=== PATIENT | female | born 1985 | race Caucasian/White ===

== ENCOUNTER → 2017-01-11 | Outpatient (CLI) | payer BC | LOC: CLAB 15:44 | PROVIDERS: ATTEND Obstetrics & Gynecology | DX: Z67.21 Type B blood, Rh negative (principal) | CPT/HCPCS: 36415; 86900; 86901; 90384; J2790 ==

== ENCOUNTER → 2017-01-12 | Outpatient (CLI) | payer BC | LOC: HPND 07:36 | PROVIDERS: ATTEND Obstetrics & Gynecology | DX: O36.0990 Maternal care for other rhesus isoimmunization, unspecified trimester, not applicable or unspecified (principal); Z67.21 Type B blood, Rh negative | CPT/HCPCS: 96372 ==

== ENCOUNTER 2017-08-23 02:31 | Inpatient (IN) | payer BC ==
[2017-08-23] VITALS (12 sets, daily range): BP systolic 112–135; BP diastolic 67–92; PULSE 66–91; RESP 16–18; TEMP 98.3–98.5
[~2017-08-23] VITALS: Ht 175.3 cm; Wt 93.0 kg
[2017-08-23] MEDS ORDERED: OXYTOCIN 30 UNITS-500ML PREMIX 500 ML ONE (02:53)
[2017-08-23] MEDS ORDERED: LIDOCAINE HCL 1% 50 ML VIAL ONE (02:54)
[2017-08-23 02:59] LABS: AUTOMATED NEUTROPHIL # 5.3 TH/MM3 (1.8-7.7); BASOPHIL # 0.1 TH/MM3 (0-0.2); BASOPHIL % 0.7 % (0.0-2.0); EOSINOPHIL # 0.1 TH/MM3 (0-0.4); EOSINOPHIL % 0.8 % (0.0-4.0); HEMATOCRIT 38.3 % (35.0-46.0); HEMO FLAGS DIFF FINAL; LYMPH % 37.7 % (9.0-44.0); LYMPHOCYTE # 3.7 TH/MM3 (1.0-4.8); MEAN CELL VOLUME 90.7 FL (80.0-100.0); MEAN CORPUSCULAR HEMOGLOBIN 30.5 PG (27.0-34.0); MEAN CORPUSCULAR HGB CONC 33.6 % (32.0-36.0); MONO % 7.4 % (0.0-8.0); NEUT % 53.4 % (16.0-70.0); PLATELET COUNT 217 TH/MM3 (150-450); RED BLOOD COUNT 4.22 MIL/MM3 (4.00-5.30); RED CELL DISTRIBUTION WIDTH 13.3 % (11.6-17.2); WHITE BLOOD COUNT 9.9 TH/MM3 (4.0-11.0)
[2017-08-23] MEDS ORDERED: MINERAL OIL 10 ML VIAL TOPICAL PRN (03:15)
[2017-08-23] MEDS ORDERED: ONDANSETRON ODT 4 MG TAB PO PRN (03:15)
[2017-08-23] MEDS ORDERED: LIDOCAINE HCL 1% 50 ML VIAL I-DERMAL PRN (03:15)
[2017-08-23] MEDS ORDERED: NS 1000 ML IV PRN (03:15)
[2017-08-23] MEDS ORDERED: ALUMINUM/MAGNESIUM/SIMETH 30 ML CUP PO PRN (03:15)
[2017-08-23] MEDS ORDERED: ZOLPIDEM TARTRATE 5 MG TAB PO PRN (03:15)
[2017-08-23] MEDS ORDERED: WITCH HAZEL 50%/GLYCERIN 12.5% 40 PAD JAR TOPICAL PRN (03:15)
[2017-08-23] MEDS ORDERED: OXYTOCIN 30 UNITS 500ML PREMIX IV ONE (03:15)
[2017-08-23] MEDS ORDERED: CITRIC ACID-SODIUM CITRATE LIQ 30 ML UDC PO SCH (03:15)
[2017-08-23] MEDS ORDERED: BENZOCAINE 20% TOPICAL SPRAY 60 ML CAN TOPICAL PRN (03:15)
[2017-08-23] MEDS ORDERED: DOCUSATE SODIUM 50 MG/SENNA 8.6 MG TAB PO PRN (03:15)
[2017-08-23] MEDS ORDERED: SODIUM CHLORIDE 0.9% FLUSH 10 ML FLUSH IV FLUSH PRN (03:15)
[2017-08-23] MEDS ORDERED: LACTATED RINGER'S 1000 ML BOLUS IV PRN (03:15)
[2017-08-23] MEDS ORDERED: OXYTOCIN 30 UNITS-500ML PREMIX 500 ML IV SCH (03:15)
[2017-08-23] MEDS ORDERED: ONDANSETRON HCL 4 MG/2 ML VIAL IV PUSH PRN (03:15)
[2017-08-23] MEDS ORDERED: LIDOCAINE HCL 1% 50 ML VIAL INFIL PRN (03:15)
[2017-08-23] MEDS ORDERED: NS 500 ML BOLUS IV PRN (03:15)
[2017-08-23] MEDS ORDERED: oxyCODONE/ACETAMINOPHEN 5 MG/325 MG TAB PO PRN (03:15)
--- NOTE | 2017-08-23 03:16 | PD.OB.DELI ---
Weeks gestation: 38 Gest age assessed date: Aug 23, 2017 Gest age assessed time: 03:10 Pt started active labor?: Yes Active labor start date: Aug 23, 2017 Active labor start time: 01:30 Medical induction of labor?: No Artificial rupture of membrane: No Anesthesia: None Episiotomy: None Vaginal Delivery: Precipitous Presentation: Occiput anterior Nuchal Cord: x1 Delayed cord clamping (45 sec): Yes : Male Delivery date: Aug 23, 2017 Delivery time: 02:57 One Minute : 8 Five Minute : 9 Placenta: Spontaneous delivery, Intact, 3 vessel cord Laceration: No lacerations Estimated blood loss: 150cc Dick Garay MD Aug 23, 2017 03:16
[2017-08-23] MEDS: LACTATED RINGER'S 1000 ML IV SCH ×2 (03:26→19:15)
--- NOTE | 2017-08-23 03:28 | HHI.HP ---
HPI Chief Complaint 38 weeks and 4 days. Presents fully dilated Date Seen: Aug 23, 2017 Time Seen: 02:50 Travel History International Travel<30 Days: No Contact w/Intl Traveler<30Days: No Known Affected Area: No History of Present Illness HPI Pt is a 32 yo who presents on L&D at 38 weeks and 4 days, with uterine contractions. Pt states she had mild contractions earlier in the night, but woke up at 01:30 with strong contractions. She noted fluid leak at the same time. care wih Dr Tony with [facility] 09-01-2017. complicated by gestational diabetes, well-controlled with PO Glybride. Pt also had well-controlled hypothyroidism on Synthroid 88mcg daily. Weeks Gestation: 38 Para: 2 : 3 History Past Medical History Narrative Medical Hypothyroidism Obstetric History Obstetric History 2 prior term vaginal deliveries. Past Surgical History Surgical History: No Previous Surgery Family History Family History: Negative Social History Alcohol Use: No Tobacco Use: No Substance Abuse: No Review of Systems Except as stated in HPI: all other systems reviewed are Neg Physical Exam Narrative GENERAL: Well-nourished, well-developed patient. SKIN: Warm and dry. HEAD: Normocephalic and atraumatic. EYES: No scleral icterus. No injection or drainage. ENT: No nasal drainage noted. Mucous membranes pink. Airway patent. NECK: Supple, trachea midline. No JVD. CARDIOVASCULAR: Regular rate and rhythm without murmurs, gallops, or rubs. RESPIRATORY: Breath sounds equal bilaterally. No accessory muscle use. BREASTS: Bilateral exam showed no masses , no retractions, no nipple discharge. ABDOMEN/GI: Abdomen soft, non-tender, bowel sounds present, no rebound, no guarding Gravid to [38] weeks size GENITOURINARY: External Genitalia: intact and normal in appearance Cervix: [-] Dilatation: [full] Effacement: [-] Station: [+2] Presentation: [-] Membranes: [Ruptured] Uterine Contractions: [every 1-2 minutes] FHT's: Category: [2] Baseline: [140s] Reactive: [-] Variability: [moderate] Decels: [early] EXTREMITIES: No cyanosis or edema. BACK: Nontender without obvious deformity. No CVA tenderness. NEUROLOGICAL: Awake and alert. Motor and sensory grossly within normal limits. Five out of 5 muscle strength in all muscle groups. Normal speech. Caprini VTE Risk Assessment Caprini VTE Risk Assessment: No/Low Risk (score <= 1) Caprini Risk Assessment Model Point Value = 1 Point Value = 2 Point Value = 3 Point Value = 5 Age 41-60 Minor surgery BMI > 25 kg/m2 Swollen legs Varicose veins or History of unexplained or recurrent spontaneous Oral contraceptives or hormone replacement Sepsis (< 1 month) Serious lung disease, including pneumonia (< 1 month) Abnormal pulmonary function Acute myocardial infarction Congestive heart failure (< 1 month) History of inflammatory bowel disease Medical patient at bed rest Age 61-74 Arthroscopic surgery Major open surgery (> 45 min) Laparoscopic surgery (> 45 min) Malignancy Confined to bed (> 72 hours) Immobilizing plaster cast Central venous access Age >= 75 History of VTE Family history of VTE Factor V Leiden Prothrombin [id number] Lupus anticoagulant Anticardiolipin antibodies Elevated serum homocysteine Heparin-induced thrombocytopenia Other congenital or acquired thrombophilia Stroke (< 1 month) Elective arthroplasty Hip, pelvis, or leg fracture Acute spinal cord injury (< 1 month) Prophylaxis Regimen Total Risk Factor Score Risk Level Prophylaxis Regimen 0-1 Low Early ambulation 2 Moderate Order ONE of the following: *Sequential Compression Device (SCD) *Heparin 5000 units SQ BID 3-4 Higher Order ONE of the following medications: *Heparin 5000 units SQ TID *Enoxaparin/Lovenox 40 mg SQ daily (WT < 150 kg, CrCl > 30 mL/min) *Enoxaparin/Lovenox 30 mg SQ daily (WT < 150 kg, CrCl > 10-29 mL/min) *Enoxaparin/Lovenox 30 mg SQ BID (WT < 150 kg, CrCl > 30 mL/min) AND/OR *Sequential Compression Device (SCD) 5 or more Highest Order ONE of the following medications: *Heparin 5000 units SQ TID (Preferred with Epidurals) *Enoxaparin/Lovenox 40 mg SQ daily (WT < 150 kg, CrCl > 30 mL/min) *Enoxaparin/Lovenox 30 mg SQ daily (WT < 150 kg, CrCl > 10-29 mL/min) *Enoxaparin/Lovenox 30 mg SQ BID (WT < 150 kg, CrCl > 30 mL/min) AND *Sequential Compression Device (SCD) Data Data Vital Signs Reviewed: Yes Orders Orders Ob (2e) Additional Admit Info (08/23/17 02:41) Complete Blood Count With Diff (08/23/17 02:52) Hold Clot (08/23/17 02:52) Abo/Rh Blood Type (08/23/17 02:52) Oxytocin 30 Units-500ml Premix (Pitocin (08/23/17 02:53) Lidocaine 1% Inj (50 Ml) (Xylocaine 1% I (08/23/17 02:54) Admit To Inpatient (08/23/17 ) Vital Signs (Adult) .Per protocol (08/23/17 02:54) Activity Oob Ad Ana Luisa (08/23/17 02:54) Heart (08/23/17 02:54) Amnioinfusion (08/23/17 02:54) Urinary Catheter Management .ONCE (08/23/17 02:54) Resp Oxygen Non Rebreathe Mask (08/23/17 ) ^ Epidural / Intrathecal Infus (08/23/17 02:54) Lactated Ringer's 1000 Ml Inj (Lr 1000 M (08/23/17 03:15) Lactated Ringer's 1000 Ml Inj (Lr 1000 M (08/23/17 03:15) Sodium Chlorid 0.9% 500 Ml Inj (Ns 500 M (08/23/17 03:15) Sodium Chlor 0.9% 1000 Ml Inj (Ns 1000 M (08/23/17 03:15) Lidocaine 1% Inj (50 Ml) (Xylocaine 1% I (08/23/17 03:15) Citric Acid-Sodium Citrate Liq (Bicitra (08/23/17 03:15) Ondansetron Inj (Zofran Inj) (08/23/17 03:15) Fentanyl Inj (Fentanyl Inj) (08/23/17 03:15) Fentanyl Inj (Fentanyl Inj) (08/23/17 03:15) Oxytocin 30 Units-500ml Premix (Pitocin (08/23/17 03:15) Lidocaine 1% Inj (50 Ml) (Xylocaine 1% I (08/23/17 03:15) Light Mineral Oil (Muri-Lube Oil) (08/23/17 03:15) Group B Strep: Negative Labs Laboratory Tests Test 08/23/17 02:50 White Blood Count 9.9 Red Blood Count 4.22 Hemoglobin 12.9 Hematocrit 38.3 Mean Corpuscular Volume 90.7 Mean Corpuscular Hemoglobin 30.5 Mean Corpuscular Hemoglobin Concent 33.6 Red Cell Distribution Width 13.3 Platelet Count 217 Mean Platelet Volume 10.3 Neutrophils (%) (Auto) 53.4 Lymphocytes (%) (Auto) 37.7 Monocytes (%) (Auto) 7.4 Eosinophils (%) (Auto) 0.8 Basophils (%) (Auto) 0.7 Neutrophils # (Auto) 5.3 Lymphocytes # (Auto) 3.7 Monocytes # (Auto) 0.7 Eosinophils # (Auto) 0.1 Basophils # (Auto) 0.1 CBC Comment DIFF FINAL Differential Comment Assessment/Plan Assessment and Plan 38 weeks and 4 days Hypothyroidism, Gestational Diabetes. Presents fully dilated and pushing. Admit for delivery Dick Garay MD Aug 23, 2017 03:28
[2017-08-23] MEDS: LEVOTHYROXINE SODIUM 88 MCG TAB PO SCH (06:51)
--- NOTE | 2017-08-23 08:11 | HHI.OB ---
Subjective Post Day: 0 Remarks s/p precipitous delivery early this AM Objective Vitals/I&O Vital Signs Date Time Temp Pulse Resp B/P (MAP) Pulse Ox O2 Delivery O2 Flow Rate FiO2 08/23/17 04:30 98.5 08/23/17 04:30 77 16 131/89 (103) 08/23/17 04:01 74 134/85 (101) 08/23/17 03:46 74 135/92 (106) 08/23/17 03:45 17 08/23/17 03:30 98.4 08/23/17 03:18 16 08/23/17 03:15 86 125/69 (87) 08/23/17 03:14 18 08/23/17 03:02 91 120/67 (84) 08/23/17 03:00 18 Objective Remarks GENERAL: Well-nourished, well-developed patient. CARDIOVASCULAR: Regular rate and rhythm without murmurs, gallops, or rubs. RESPIRATORY: Breath sounds equal bilaterally. No accessory muscle use. ABDOMEN/GI: Abdomen soft, non-tender. Fundus: Firm, non-tender at umbilicus. GENITOURINARY: Light bleeding. EXTREMITIES: No cyanosis or edema, non-tender, without signs of DVT. Medications and IVs Current Medications Medications (Trade) Dose Ordered Sig/Fadumo Route Start Time Stop Time Status Last Admin Lactated Ringer's 1,000 ml @ 125 mls/hr Q8H IV 08/23/17 03:15 08/23/17 03:26 Lactated Ringer's 1,000 ml @ 3,000 mls/hr BOLUS PRN IV 08/23/17 03:15 Sodium Chloride 500 ml @ 1,000 mls/hr BOLUS PRN IV 08/23/17 03:15 Sodium Chloride 1,000 ml @ 100 mls/hr Q10H PRN IV 08/23/17 03:15 (Bicitra Liq) 30 ml [employer] PO 08/23/17 03:15 08/26/17 03:14 (Zofran Inj) 4 mg Q6H PRN IV PUSH 08/23/17 03:15 (fentaNYL INJ) 50 mcg Q1H PRN IV PUSH 08/23/17 03:15 (fentaNYL INJ) 100 mcg Q1H PRN IV PUSH 08/23/17 03:15 (Muri-Lube Oil) 10 ml UNSCH PRN TOPICAL 08/23/17 03:15 (NS Flush) 2 ml BID IV FLUSH 08/23/17 09:00 (NS Flush) 2 ml UNSCH PRN IV FLUSH 08/23/17 03:15 Oxytocin 500 ml @ 100 mls/hr CONTINUOUS IV 08/23/17 03:15 08/23/17 08:14 (Motrin) 600 mg Q6H PRN PO 08/23/17 03:15 (Percocet 5-325 Mg) 1 tab Q4H PRN PO 08/23/17 03:15 (Americaine 20% Top Spr) 1 spray Q4H PRN TOPICAL 08/23/17 03:15 (Tucks Pads) 1 applic QID PRN TOPICAL 08/23/17 03:15 (Lesly-Colace) 2 tab Q12H PRN PO 08/23/17 03:15 (Ambien) 5 mg HS PRN PO 08/23/17 03:15 (M-M-R Ii Inj) 0.5 ml ONCE ONCE SQ 08/23/17 16:00 08/23/17 16:01 (Boostrix Inj) 0.5 ml ONCE ONCE IM 08/23/17 16:00 08/23/17 16:01 (Mag-Al Plus Susp Liq) 15 ml Q8H PRN PO 08/23/17 03:15 (Zofran Odt) 4 mg Q6H PRN PO 08/23/17 03:15 (Synthroid) 88 mcg DAILY@0600 PO 08/23/17 06:00 08/23/17 06:51 (Flu (Quadrivalent) Vaccine Inj) 0.5 ml ONCE ONCE IM 08/24/17 10:00 08/24/17 10:01 Assessment/Plan Problem List: (1) (spontaneous vaginal delivery) ICD Codes: O80 - Encounter for full-term uncomplicated delivery Status: Acute Assessment and Plan PPD#0 routine PP care infant for circ tmrw (not yet cleared by Peds this AM) anticipate d/c to home tmrw Discharge Planning routine Abbie Fischer MD Aug 23, 2017 08:11
[2017-08-23] MEDS: SODIUM CHLORIDE 0.9% FLUSH 10 ML FLUSH IV FLUSH SCH ×2 (09:00→21:00)
[2017-08-23] MEDS ORDERED: INFLUENZA VIRUS VACCINE (QUADRIVALENT) 0.5 ML SYR IM ONE (09:00)
[2017-08-23] MEDS ORDERED: MEASLES, MUMPS, RUBELLA VACCINE 0.5 ML VIAL SQ ONE (16:00)
[2017-08-23] MEDS ORDERED: DIPHTH/TETANUS/ACEL PERTUSSIS (BOOSTER) 0.5 ML VIAL/PFS IM ONE (16:00)
[2017-08-23] MEDS: IBUPROFEN 600 MG TAB PO PRN (18:46)
[2017-08-24] MEDS: LACTATED RINGER'S 1000 ML IV SCH ×2 (00:04→19:15)
[2017-08-24] MEDS: LEVOTHYROXINE SODIUM 88 MCG TAB PO SCH (06:26)
[2017-08-24] MEDS: IBUPROFEN 600 MG TAB PO PRN ×2 (06:26→21:00)
--- NOTE | 2017-08-24 07:46 | HHI.OB ---
Subjective Post Day: 1 Objective Vitals/I&O Vital Signs Date Time Temp Pulse Resp B/P (MAP) Pulse Ox O2 Delivery O2 Flow Rate FiO2 08/23/17 21:30 73 18 112/73 (86) 08/23/17 08:15 66 18 120/83 (95) 08/23/17 08:15 98.3 Objective Remarks GENERAL: Well-nourished, well-developed patient. CARDIOVASCULAR: Regular rate and rhythm without murmurs, gallops, or rubs. RESPIRATORY: Breath sounds equal bilaterally. No accessory muscle use. ABDOMEN/GI: Abdomen soft, non-tender. Fundus: Firm, non-tender at umbilicus. GENITOURINARY: Light bleeding. EXTREMITIES: No cyanosis or edema, non-tender, without signs of DVT. Medications and IVs Current Medications Medications (Trade) Dose Ordered Sig/Fadumo Route Start Time Stop Time Status Last Admin Lactated Ringer's 1,000 ml @ 125 mls/hr Q8H IV 08/23/17 03:15 08/23/17 03:26 Lactated Ringer's 1,000 ml @ 3,000 mls/hr BOLUS PRN IV 08/23/17 03:15 Sodium Chloride 500 ml @ 1,000 mls/hr BOLUS PRN IV 08/23/17 03:15 Sodium Chloride 1,000 ml @ 100 mls/hr Q10H PRN IV 08/23/17 03:15 (Bicitra Liq) 30 ml [employer] PO 08/23/17 03:15 08/26/17 03:14 (Zofran Inj) 4 mg Q6H PRN IV PUSH 08/23/17 03:15 (fentaNYL INJ) 50 mcg Q1H PRN IV PUSH 08/23/17 03:15 (fentaNYL INJ) 100 mcg Q1H PRN IV PUSH 08/23/17 03:15 (Muri-Lube Oil) 10 ml UNSCH PRN TOPICAL 08/23/17 03:15 (NS Flush) 2 ml BID IV FLUSH 08/23/17 09:00 (NS Flush) 2 ml UNSCH PRN IV FLUSH 08/23/17 03:15 (Motrin) 600 mg Q6H PRN PO 08/23/17 03:15 08/24/17 06:26 (Percocet 5-325 Mg) 1 tab Q4H PRN PO 08/23/17 03:15 (Americaine 20% Top Spr) 1 spray Q4H PRN TOPICAL 08/23/17 03:15 (Tucks Pads) 1 applic QID PRN TOPICAL 08/23/17 03:15 08/23/17 07:47 (Lesly-Colace) 2 tab Q12H PRN PO 08/23/17 03:15 (Ambien) 5 mg HS PRN PO 08/23/17 03:15 (Mag-Al Plus Susp Liq) 15 ml Q8H PRN PO 08/23/17 03:15 (Zofran Odt) 4 mg Q6H PRN PO 08/23/17 03:15 (Synthroid) 88 mcg DAILY@0600 PO 08/23/17 06:00 08/24/17 06:26 Assessment/Plan Problem List: (1) (spontaneous vaginal delivery) ICD Codes: O80 - Encounter for full-term uncomplicated delivery Status: Acute Assessment and Plan PPD#1 routine PP care infant in NICU, will need circ when stabilizes anticipate d/c to home tmrw Discharge Planning routine Abbie Fischer MD Aug 24, 2017 07:46
[2017-08-24 11:47] VITALS: TEMP 98.4
[2017-08-24] MEDS: SODIUM CHLORIDE 0.9% FLUSH 10 ML FLUSH IV FLUSH SCH (20:47)
[2017-08-24 21:00] VITALS: BP 116/77; PULSE 72; RESP 18; TEMP 98.4
[2017-08-25] MEDS: LACTATED RINGER'S 1000 ML IV SCH (03:15)
[2017-08-25] MEDS: IBUPROFEN 600 MG TAB PO PRN (06:13)
[2017-08-25] MEDS: LEVOTHYROXINE SODIUM 88 MCG TAB PO SCH (06:13)
[2017-08-25 09:00] VITALS: BP 133/89; PULSE 67; RESP 18; TEMP 98.2
--- NOTE | 2017-08-25 09:51 | HHI.OB ---
Subjective Post Day: 2 Remarks PPD#2,Patient stable, is out of NICU but is now on biliblanket and remains on antibiotics Objective Vitals/I&O Vital Signs Date Time Temp Pulse Resp B/P (MAP) Pulse Ox O2 Delivery O2 Flow Rate FiO2 08/24/17 21:00 98.4 72 18 116/77 (90) 08/24/17 11:47 98.4 Objective Remarks GENERAL: Well-nourished, well-developed patient. CARDIOVASCULAR: Regular rate and rhythm without murmurs, gallops, or rubs. RESPIRATORY: Breath sounds equal bilaterally. No accessory muscle use. ABDOMEN/GI: Abdomen soft, non-tender. Fundus: Firm, non-tender at umbilicus. GENITOURINARY: Light bleeding. EXTREMITIES: No cyanosis or edema, non-tender, without signs of DVT. Medications and IVs Current Medications Medications (Trade) Dose Ordered Sig/Fadumo Route Start Time Stop Time Status Last Admin Lactated Ringer's 1,000 ml @ 125 mls/hr Q8H IV 08/23/17 03:15 08/23/17 03:26 Lactated Ringer's 1,000 ml @ 3,000 mls/hr BOLUS PRN IV 08/23/17 03:15 Sodium Chloride 500 ml @ 1,000 mls/hr BOLUS PRN IV 08/23/17 03:15 Sodium Chloride 1,000 ml @ 100 mls/hr Q10H PRN IV 08/23/17 03:15 (Bicitra Liq) 30 ml [employer]OVER PO 08/23/17 03:15 08/26/17 03:14 (Zofran Inj) 4 mg Q6H PRN IV PUSH 08/23/17 03:15 (fentaNYL INJ) 50 mcg Q1H PRN IV PUSH 08/23/17 03:15 (fentaNYL INJ) 100 mcg Q1H PRN IV PUSH 08/23/17 03:15 (Muri-Lube Oil) 10 ml UNSCH PRN TOPICAL 08/23/17 03:15 (NS Flush) 2 ml BID IV FLUSH 08/23/17 09:00 (NS Flush) 2 ml UNSCH PRN IV FLUSH 08/23/17 03:15 (Motrin) 600 mg Q6H PRN PO 08/23/17 03:15 08/25/17 06:13 (Percocet 5-325 Mg) 1 tab Q4H PRN PO 08/23/17 03:15 (Americaine 20% Top Spr) 1 spray Q4H PRN TOPICAL 08/23/17 03:15 (Tucks Pads) 1 applic QID PRN TOPICAL 08/23/17 03:15 08/23/17 07:47 (Lesly-Colace) 2 tab Q12H PRN PO 08/23/17 03:15 08/24/17 20:59 (Ambien) 5 mg HS PRN PO 08/23/17 03:15 (Mag-Al Plus Susp Liq) 15 ml Q8H PRN PO 08/23/17 03:15 (Zofran Odt) 4 mg Q6H PRN PO 08/23/17 03:15 (Synthroid) 88 mcg DAILY@0600 PO 08/23/17 06:00 08/25/17 06:13 Assessment/Plan Problem List: (1) (spontaneous vaginal delivery) ICD Codes: O80 - Encounter for full-term uncomplicated delivery Status: Acute Assessment and Plan PPD#2; Stable ,will determine discharge today, awaiting evaluation from Peds, maybe transfered to PEDS unit Discharge Planning Pending disposition of infant Attending Attestation seen by Santos Fenton MD Aug 25, 2017 09:51
--- NOTE | 2017-08-25 09:53 | HHI.DS ---
Admission Date Aug 23, 2017 at 02:44 Discharge Date: Aug 25, 2017 Admitting Diagnosis Diagnosis: Delivery Date: Aug 23, 2017 Vaginal Delivery: Normal : Male Brief History Pt is a 32 yo who presents on L&D at 38 weeks and 4 days, with uterine contractions. Pt states she had mild contractions earlier in the night, but woke up at 01:30 with strong contractions. She noted fluid leak at the same time. care wih Dr Tony with [facility] 09-01-2017. complicated by gestational diabetes, well-controlled with PO Glybride. Pt also had well-controlled hypothyroidism on Synthroid 88mcg daily. Pt Condition on Discharge: Good Discharge Disposition: Discharge Home Discharge Instructions Diet Instructions: As Tolerated, No Restrictions Activities You Can Perform: Shower Only-No Bath Activities to Avoid: Driving for 24 hrs, Prolonged Standing, Strenuous Activity , Sexual Activity Santos Hardy MD Aug 25, 2017 09:53
== END 2017-08-25 17:55 | disposition home or self-care (01) | DRG 775 ==
LOC: HOBED 02:31 → H2EB 02:44 → H1EA 04:13
PROVIDERS: ADMIT Obstetrics & Gynecology; ATTEND Obstetrics & Gynecology
PROC: 10E0XZZ Delivery of Products of Conception, External Approach (ICD-10-PCS; principal; 2017-08-23)
DX: O62.3 Precipitate labor (principal); O24.429 Gestational diabetes mellitus in childbirth, unspecified control; E03.9 Hypothyroidism, unspecified; Z37.0 Single live birth; O99.284 Endocrine, nutritional and metabolic diseases complicating childbirth; O69.81X0 Labor and delivery complicated by cord around neck, without compression, not applicable or unspecified; Z3A.38 38 weeks gestation of pregnancy
CPT/HCPCS: 82948; 85025; 85461; 86850; 86900; 86901; 90384; 90686; 99285; J2590; J2790; J7120; Q2038